=== PATIENT | female | born 1995 | race Caucasian/White ===

== ENCOUNTER → 2018-08-26 | Outpatient (REF) | payer OTHER ==
[2018-08-26 11:39] LABS: PLATELET COUNT, AUTOMATED 373 K/uL (150-450)
== END ==
PROVIDERS: ATTEND Nurse Practitioner Family
DX: R10.9 Unspecified abdominal pain (principal)
CPT/HCPCS: 82040; 82247; 82310; 82374; 82435; 82565; 82947; 84075; 84132; 84155; 84295; 84450; 84460; 84520; 85025

== ENCOUNTER 2018-09-17 12:51 | Emergency (ER) | payer SELFPAY ==
[2018-09-17 12:55] VITALS: BP 154/93
--- NOTE | 2018-09-17 13:01 | ER Report ---
History and Physical Time Seen By MD: 13:01 HPI/ROS CHIEF COMPLAINT: Shortness of breath HISTORY OF PRESENT ILLNESS: This is a 23-year-old female who presents to the emergency department for shortness breath. Patient states that around 10 AM today while she was at work, she began to experience some shortness of breath, started breathing very rapidly, she became very anxious, became lightheaded, she never passed out, EMS was contacted, they checked her answers going center to the ER for further evaluation. Patient arrives very anxious, states that she was concerned that something else was going on and wanted to have an evaluation. She denies fevers or chills. No nausea or vomiting. No chest pain. She states she does have a history of bipolar and anxiety, she states she's had anxiety attacks in the past however she does not recall when this intense. After I been talking with her for about 15 minutes she became less anxious, and is feeling more at ease. She states the shortness of breath is improving, she denies suicidal or homicidal ideations. REVIEW OF SYSTEMS: Constitutional: No fever, no chills. Eyes: No discharge. ENT: No sore throat. Cardiovascular: As above. Respiratory: No cough, no shortness of breath. Gastrointestinal: No abdominal pain, no vomiting. Genitourinary: No hematuria. Musculoskeletal: No back pain. Skin: No rashes. Neurological: No headache. Psychological: As above. Allergies: Coded Allergies: No Known Drug Allergies (Unverified , 09/17/18) Home Meds Active Scripts Lorazepam (ATIVAN) 0.5 Mg Tablet, 1 MG PO Q4-6H, #1 TAB 0 Refills Prov:MAHAMED PADGETT ENVIRONMENTAL GEOLOGIST- 09/17/18 Past Medical/Surgical History Patient has a past medical and surgical history of bipolar, anxiety, depression, previous suicide attempt. Reviewed Nurses Notes: Yes Constitutional Vital Sign - Last 24 Hours 09/17/18 12:55 Temp 98.8 Pulse 96 Resp 24 B/P (MAP) 154/93 Pulse Ox 98 O2 Delivery Room Air Physical Exam General Appearance: The patient is alert, has no immediate need for airway protection and no signs of toxicity. Anxious. Eyes: Pupils equal and round no pallor or injection. ENT, Mouth: Mucous membranes are moist. Respiratory: There are no retractions, lungs are clear to auscultation. Cardiovascular: Regular rate and rhythm. No murmurs, clicks or rubs. Gastrointestinal: Abdomen is soft and non tender, no masses, bowel sounds normal. Neurological: Alert and oriented 4. Moving all extremities. Following all commands. No focal neuro deficits. Skin: Warm and dry, no rashes. Musculoskeletal: Neck is supple non tender. Extremities are nontender, nonswollen and have full range of motion. DIFFERENTIAL DIAGNOSIS: After history and physical exam differential diagnosis w as considered for shortness of breath including but not limited to pulmonary infectious process, anxiety, COPD, asthma, pulmonary embolus and congestive heart failure. Medical Decision Making EKG/Imaging EKG Interpretation 12 lead EKG: Time of EKG 1306. Rhythm: Sinus rhythm, ventricular rate 81 bpm. [place]: normal QRS: normal ST segments: No ST depression or elevation identified. Underlying artifact however no prescription and findings. ED Course/Re-evaluation ED Course The patient was admitted to room. A history of physical were obtained. Differential diagnoses were considered. Initially EKG is obtained showing sinus rhythm, ventricular rate 81 bpm, there is underlying artifact however no ST elevation or depression or underlying dysrhythmia. I discussed with the patient at length about proceeding with laboratory studies, chest x-ray including a d- dimer looking for clots, after this discussion the patient became more relaxed, and ultimately decided to forego any additional studies at this time. She states that she has been any manic phase recently, this feels similar however the anxiety or panic attack today is more severe than when she's had in the past at least what she can recall. I did recommend establishing with him following up with a primary care provider within the next 1-2 weeks. I also told her to have a low threshold for returning to the ER should she develop increased shortness of breath, chest pain or any other concerns and that we would likely check the laboratory studies, chest x-ray at that time. She was agreeable with this plan of care, more relaxed at the time of discharge. The patient was given one, 1 mg tablet prescription for Ativan. Decision to Disposition Date: Sep 17, 2018 Decision to Disposition Time: 13:29 Depart Departure Latest Vital Signs Vital Signs Date Time Temp Pulse Resp B/P (MAP) Pulse Ox O2 Delivery O2 Flow Rate FiO2 09/17/18 12:55 98.8 96 24 154/93 98 Room Air Impression: Primary Impression: Shortness of breath Additional Impression: Panic attack Condition: Improved Disposition: HOME OR SELF-CARE Referrals: MAMTA JACKSON DNP, ENVIRONMENTAL GEOLOGIST-GIO New Scripts Lorazepam (ATIVAN) 0.5 Mg Tablet 1 MG PO Q4-6H, #1 TAB 0 Refills Prov: MAHAMED PADGETT 09/17/18 Departure Forms: ER Transition Record, Medications Reconciliation, Off Work/School Form, School or Work Release?: Work Number of days to be released: 1 Patient Portal Information Patient Instructions: Dyspnea (ED), Panic Attack (ED) Additional Instructions: As we discussed today, your likelihood of cardiac complications or blood clots are very low however there is always a risk, if you decide to return to the emergency department we will likely proceed with laboratory studies as well as chest x-ray. Please follow up and establish with a primary care provider within the next 1-2 weeks. Please take today off, return to work tomorrow and please try to minimize the surrounding stress. Be sure to drink plenty of water. Get plenty of rest. Return to the emergency department for any other concerns or worsening symptoms. Problem Qualifiers MAHAMED PADGETT Sep 17, 2018 13:01
[2018-09-17] MEDS ORDERED: LORA-1455 PO (13:37)
--- NOTE | 2018-09-18 08:14 | EKG ---
FACILITY: [facility] PATIENT NAME: MARY CHRISTIANSON : [id number] MR: [id number] V: [id number] EXAM DATE: ORDERING PHYSICIAN: WILIAM HILL TECHNOLOGIST: SUSAN BRADLEY Test Reason : CP Blood Pressure : / mmHG Vent. Rate : 081 BPM Atrial Rate : 081 BPM P-R Int : 096 ms QRS Dur : 102 ms QT Int : 412 ms P-R-T Axes : -17 035 063 degrees QTc Int : 478 ms Sinus rhythm with marked sinus arrhythmia with short MA Otherwise normal ECG No previous ECGs available Confirmed by Alex Melo ([id number]) on 09/18/2018 2:57:32 PM Referred By: SERGIO Confirmed By:Alex Evans
== END 2018-09-17 13:36 | disposition home or self-care (01) ==
LOC: ER 13:06
DX: R06.02 Shortness of breath (principal); F41.0 Panic disorder [episodic paroxysmal anxiety]
CPT/HCPCS: 93005; 99283

== ENCOUNTER 2018-10-10 18:16 | Inpatient (IN) | payer SELFPAY ==
[~2018-10-10] VITALS: Ht 167.6 cm; Wt 110.7 kg
[~2018-10-10 18:16] MED LIST changes: -HYDR50CA47 PO; -MULT-859 PO; -NIC10R INH; -QUET50TA21 PO
[2018-10-10] MEDS ORDERED: MAG HYD/AL HYD/SIMETH 30ML UDC PO PRN (19:20)
[2018-10-10] MEDS ORDERED: ACETAMINOPHEN 325 MG TAB PO PRN (19:20)
[2018-10-10] MEDS ORDERED: NICOTINE CARTRIDGE 1 EA PO PRN (19:25)
[2018-10-10] MEDS: LORazepam 1 MG TAB PO SCH ×2 (20:43→21:55)
[2018-10-10] MEDS: NICOTINE INH SYSTEM 10 MG/INH INH PRN (20:44)
[2018-10-10 20:51] VITALS: BP 143/96
[2018-10-11 05:41] VITALS: BP 151/63
[2018-10-11] MEDS: NICOTINE INH SYSTEM 10 MG/INH INH PRN (08:30)
[2018-10-11] MEDS: MULTIVITAMINS PO SCH (08:30)
[2018-10-11 13:56] VITALS: BP 132/92
[2018-10-11] MEDS ORDERED: hydrOXYzine PAMOATE 25 MG CAP PO PRN ×2 (14:00→16:25)
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
[2018-10-11] MEDS ORDERED: QUEtiapine FUM 25 MG TAB PO SCH (21:00)
[2018-10-11] MEDS: LORazepam 1 MG TAB PO SCH (21:04)
[2018-10-12 06:43] VITALS: BP 117/81
[2018-10-12] MEDS: MULTIVITAMINS PO SCH (08:45)
[2018-10-12 09:30] VITALS: BP 132/78
--- NOTE | 2018-10-12 09:41 | BHS Progress Note ---
BHS - Subjective Progress Notes Subjective I'm doing better. My last thoughts of hurting myself were yesterday but I didn't have a plan." Denies urge for self harm, denies thoughts of ending life, "There's times I just don't to live." Depression rated 2-3/10, anxiety 7/10 Denies auditory/visual hallucinations, denies anger or mood swings Slept well w/Quetiapine 50mg po @ hs, Hydroxyzine helped anxiety Has appt. with [facility] @ 1300 10/13/18 Suicidal Ideation: None Homicidal Ideation: None BHS - Objective Physical Exam Vital Signs Laboratory Tests Test 10/10/18 14:23 10/10/18 16:36 Range/Units Urine Color Yellow Urine Clarity Cloudy Urine pH 6.0 4.8-9.5 pH Urine Specific Arjay 1.023 Urine Protein Negative NEGATIVE mg/dL Urine Glucose (UA) Negative NEGATIVE mg/dL Urine Ketones Negative NEGATIVE mg/dL Urine Blood Small NEGATIVE Urine Nitrite Negative NEGATIVE Urine Bilirubin Negative NEGATIVE Urine Urobilinogen Negative 0.2-1.9 mg/dL Urine Leukocyte Esterase Small NEGATIVE Urine RBC 3 0-2/HPF /HPF Urine WBC 9 0-5/HPF /HPF Urine Squamous Epithelial Cells Many </=FEW /LPF Urine Bacteria Few NONE-FEW /HPF Urine Hyaline Casts Few NONE-FEW /LPF Urine Mucus Few NONE-FEW /HPF Urine HCG, Qualitative Negative NEGATIVE Urine Opiates Screen Negative Urine Barbiturates Screen Negative Ur Tricyclic Antidepressants Screen Negative Urine Phencyclidine Screen Negative Urine Amphetamines Screen Negative Urine Benzodiazepines Screen Negative Urine Cocaine Screen Negative Urine Cannabinoids Screen Negative White Blood Count 10.3 4.5-11.0 k/uL Red Blood Count 5.40 4.17-5.56 M/uL Hemoglobin 15.5 12.0-16.0 g/dL Hematocrit 44.2 34.0-47.0 % Mean Corpuscular Volume 81.7 80.0-96.0 fL Mean Corpuscular Hemoglobin 28.7 26.0-33.0 pg Mean Corpuscular Hemoglobin Concent 35.1 32.0-36.0 g/dL Red Cell Distribution Width 13.0 11.5-14.5 % Platelet Count 376 150-450 K/uL Mean Platelet Volume 7.9 7.2-11.1 fL Neutrophils (%) (Auto) 62.6 39.4-72.5 % Lymphocytes (%) (Auto) 29.3 17.6-49.6 % Monocytes (%) (Auto) 6.2 4.1-12.4 % Eosinophils (%) (Auto) 1.4 0.4-6.7 % Basophils (%) (Auto) 0.5 0.3-1.4 % Nucleated RBC Relative Count (auto) 0.2 /100WBC Neutrophils # (Auto) 6.5 2.0-7.4 K/uL Lymphocytes # (Auto) 3.0 1.3-3.6 K/uL Monocytes # (Auto) 0.6 0.3-1.0 K/uL Eosinophils # (Auto) 0.1 0.0-0.5 K/uL Basophils # (Auto) 0.1 0.0-0.1 K/uL Nucleated RBC Absolute Count (auto) 0.02 K/uL Sodium Level 142 137-145 mmol/L Potassium Level 3.9 3.5-5.0 mmol/L Chloride Level 105 98-107 mmol/L Carbon Dioxide Level 23 22-31 mmol/L Blood Urea Nitrogen 10 7-18 mg/dl Creatinine 0.80 0.52-1.04 mg/dl Glomerular Filtration Rate Calc > 60.0 Random Glucose 105 75-110 mg/dl Calcium Level 9.9 8.4-10.2 mg/dl Magnesium Level 1.8 1.7-2.2 mg/dl Total Bilirubin 0.6 0.2-1.3 mg/dl Aspartate Amino Transf (AST/SGOT) 23 0-35 U/L Alanine Aminotransferase (ALT/SGPT) 41 0-56 U/L Alkaline Phosphatase 68 0-126 U/L Total Protein 7.8 6.3-8.2 g/dl Albumin 4.8 3.5-5.0 g/dl Salicylates Level < 10 mg/L Salicylate Last Dose Date unk Acetaminophen Level < 10 ug/ml Serum Alcohol < 10 mg/dl Microbiology Date/Time Source Procedure Growth Status 10/10/18 14:23 Clean Catch Midstream Ur Urine Culture - Preliminary Resulted Medications (Trade) Dose Ordered Sig/Carol Route PRN Reason Start Time Stop Time Status Last Admin Dose Admin Hydroxyzine Pamoate (Vistaril(*) 25 Mg Cap (Or Equiv)) Give 50 mg now Q6H PRN PO ANXIETY 10/11/18 16:25 11/10/18 16:24 10/11/18 17:22 Lorazepam (Ativan(*) 1 Mg Tab (Or Equiv)) 1 mg QHS PO 10/10/18 21:00 10/24/18 20:59 10/11/18 21:04 Multivitamins (Thera-M Enhanced Tab (Or Equiv)) 1 each QDAY PO 10/11/18 09:00 11/10/18 08:59 10/12/18 08:45 Nicotine (Nicotrol Inhaler 10 Mg/Inh (Or Equiv)) 10 mg Q2H PRN INH NICOTINE REPLACEMENT 10/10/18 19:25 11/09/18 19:24 10/11/18 08:30 Quetiapine Fumarate (SEROquel 25 MG TAB (OR EQUIV)) 50 mg QHS PO 10/11/18 21:00 11/10/18 20:59 10/11/18 21:04 Muscle Strength and Tone: WNL Gait and Station: Steady S Medications Reviewed: Side Effects, Benefits of Medication, Risks Allergies Reviewed: Yes Mental Status Exam General Appearance: Casual, Well Groomed, Good Eye Contact, Cooperative, Polite, Good Interaction Speech: Clear, Spontaneous, Normal Rate, Normal Rhythm, Normal Volume, Normal Tone Mood: Dysthmic/Depressed (rating 3/10) Affect: Full and Appropriate; No Calm, No Sad, No Neutral, No Flat; Anxious Thought Process: Organized, Logical, Goal Directed; No Loose Associations, No Flight of Ideas Thought Content: No Suicidal Ideation, No Homicidal Ideation Sensorium: Clear Cognition: Alert & Oriented-Person, Alert & Oriented-Place, Alert & Oriented- Time, Vlorr-[id number]-[id number] Memory: Immediate, Recent, Remote Intelligence: Average Insight Judgment: Good [facility] Assessment and Plan [id number] Encounter Date: Oct 12, 2018 [id number] Encounter Time: 09:36 [facility] Plan: Admit to Unit, Necessary Precautions, Individual/Group Therapy, Admin/Titrate Meds, Educate Patient Multpiple Antipsychotics Used: No Problems: (1) Bipolar 1 disorder, depressed Status: Chronic (2) Borderline personality disorder Status: Chronic Condition Discharge to home Discharge meds per med reconciliation Abstain from etoh/illicit substances Follow up w/[facility], appt. 10/13/18 @ 1300 Crisis line provided, encourage return to ER for SI/HI LIGIA MCWILLIAMS NP Oct 12, 2018 09:41
[2018-10-12] MEDS ORDERED: MULT-859 PO (10:00)
[2018-10-12] MEDS ORDERED: QUET50TA21 PO (10:00)
[2018-10-12] MEDS ORDERED: NIC10R INH (10:00)
[2018-10-12] MEDS ORDERED: HYDR50CA47 PO (10:01)
--- NOTE | 2018-10-13 12:20 | ROMSA DISCHARGE ---
DATE OF ADMISSION: October 10, 2018 DATE OF DISCHARGE: October 12, 2018 ATTENDING PROVIDER Elda Malone, Psychiatric Mental Health Nurse Practitioner FINAL DIAGNOSES (PER DSM-5) 1. Bipolar 1 disorder, current episode depressed. 2. Borderline personality disorder. 3. Cannabis use disorder. 4. Mild attention deficit hyperactivity disorder per history. REASON FOR ADMISSION/BRIEF HISTORY This patient is a 23-year-old single female that presented to the emergency room on a voluntary basis complaining of suicidal ideation. She reported that she had recently moved to [place] three months ago. She did quit taking her medication for bipolar disorder, which was [place] at the time, as she did not have insurance to cover expense. Patient states that she moved to [place], [place] with her fiance and that her father lives here. She states that over the last week she noticed she had constant thoughts of not wanting to live. She had no plans to commit suicide or end her life. She denied any other complaints. She was transferred to the Behavioral Health Unit for further evaluation and treatment on a voluntary basis. At time of discharge interview, patient is reporting her depression level as a 2-3/10. Her anxiety is 7/10. She is denying anger or mood swings. She was started on quetiapine 50 mg at bedtime. She reports that her sleep while she has been on the Behavioral Health Unit has been sufficient. At home, prior to admission, she was only sleeping three hours for the last week. She was also given hydroxyzine pamoate, which has been helpful for her anxiety. She has a followup with [facility] at 1 o'clock tomorrow, Saturday, October 13, 2018, with intent to followup with an individual therapist and a medication provider on the outside. She is denying thoughts of hurting herself or others and is agreeable with ongoing outpatient care. PHYSICAL EXAMINATION Please see emergency room note. Vital signs at the time of admission: Temperature 97.3, pulse 72, blood pressure 143/96, pulse oximetry 96% on room air. Vital signs at the time of discharge: Temperature 98, pulse 91, respiratory rate 16, blood pressure 132/78, pulse oximetry 97% on room air. LABORATORY DATA CBC within normal limits. Chemistry panel within normal limits. Pending thyroid stimulating hormone. Urine screen with small amount of leukocyte esterase. Many squamous epithelial cells. Toxicology includes salicylate, acetaminophen, serum alcohol levels less than 10. Urine screen negative for opiates, barbiturates, tricyclics, phencyclidine, amphetamines, benzodiazepines, cocaine and cannabinoids. RESULTS OF TESTING IMAGING None. CONSULTATIONS None. TREATMENT Patient participated in individual and group therapy. Patient was started on quetiapine 50 mg p.o. at h.s. for mood and her sleep, which she reports benefits with use. She was also started on hydroxyzine 50 mg p.o. every six hours for anxiety with reported benefit. HOSPITAL COURSE Patient remained calm and cooperative throughout her stay. She talked of engaging with [facility], which she had presented to prior to coming to the emergency room, for ongoing mental health care on an outpatient basis. CONDITION OF PATIENT ON DISCHARGE She is stable. She is considered a minimal risk to herself or others. DISPOSITION Patient is discharged to home. DISCHARGE MEDICATIONS 1. Hydroxyzine pamoate 50 mg one p.o. b.i.d. or twice daily for anxiety. 2. One multivitamin p.o. daily. 3. Nicotine cartridge inhaler as needed for nicotine replacement. 4. Quetiapine 50 mg one p.o. at h.s. Patient is encouraged to take medications only as prescribed. She is encouraged to followup with outpatient medication management provider and individual therapist s scheduled. She has an appointment with [facility] tomorrow at 1 o'clock, October 13, 2018, for followup individual therapy. She is to abstain from alcohol and all illicit substances. She is given the Crisis Line number and encouraged use for worsening symptoms. Patient is encouraged to return to the emergency room for suicidal or homicidal ideation. She is competent and agreeable with the above discharge plan. [place]
== END 2018-10-12 10:49 | disposition home or self-care (01) | DRG 885 ==
LOC: BHS 18:16
PROVIDERS: ADMIT Nurse Practitioner Psychiatric/Mental Health; ATTEND Nurse Practitioner Psychiatric/Mental Health
DX: F31.9 Bipolar disorder, unspecified (principal); R45.851 Suicidal ideations; F60.3 Borderline personality disorder; F90.1 Attention-deficit hyperactivity disorder, predominantly hyperactive type; Z91.5 Personal history of self-harm; Z62.810 Personal history of physical and sexual abuse in childhood; Z81.1 Family history of alcohol abuse and dependence; Z81.8 Family history of other mental and behavioral disorders
CPT/HCPCS: Q0177

== ENCOUNTER → 2018-10-10 | Emergency (ER) | payer SELFPAY ==
[~2018-10-10] MED LIST: HYDR50CA47 PO; LORA-1455 PO; MULT-859 PO; NIC10R INH; QUET50TA21 PO
[2018-10-10 16:05] VITALS: BP 151/111
--- NOTE | 2018-10-10 16:13 | ER Report ---
History and Physical Time Seen By MD: 16:10 HPI/ROS CHIEF COMPLAINT: Suicidal ideation HISTORY OF PRESENT ILLNESS: 23-year-old female patient presents to emergency room with complaint of suicidal ideation. Patient states that she recently moved to [place] 3 months ago. She states that she quit taking her medication for her bipolar depression at that time. There is an she gives that she did not have insurance that time. Patient states that she moved out here with her fianc as well as her father. She states that over the last week she has noticed that she has had constant thoughts of not wanting to be here. She states that she has no plans to commit suicide. She denies any fevers, chills, nausea, vomiting or diarrhea. REVIEW OF SYSTEMS: Respiratory: No cough, no dyspnea. Cardiovascular: No chest pain, no palpitations. Gastrointestinal: No vomiting, no abdominal pain. Musculoskeletal: No back pain. Allergies: Coded Allergies: No Known Drug Allergies (Unverified , 10/10/18) Home Meds Active Scripts Lorazepam (ATIVAN) 0.5 Mg Tablet, 1 MG PO Q4-6H, #1 TAB 0 Refills Prov:MAHAMED PADGETT Princess [employer] SP[employer]- 09/17/18 Past Medical/Surgical History Patient has a past medical history of bipolar depression, anxiety, suicide attempt 2. Patient denies any pertinent surgical history. Reviewed Nurses Notes: Yes Constitutional Vital Sign - Last 24 Hours 10/10/18 16:05 Temp 98.5 Pulse 106 Resp 16 B/P (MAP) 151/111 Pulse Ox 95 O2 Delivery Room Air Physical Exam General Appearance: The patient is alert, has no immediate need for airway protection and no current signs of toxicity. Respiratory: Chest is non tender, lungs are clear to auscultation. Cardiac: regular rate and rhythm Gastrointestinal: Abdomen is soft and non tender, no masses, bowel sounds normal. Musculoskeletal: Neck: Neck is supple and non tender. Extremities have full range of motion and are non tender. Skin: No rashes or lesions. Psych: Patient is able to maintain eye contact during interview, rate of speech is appropriate. DIFFERENTIAL DIAGNOSIS: After history and physical exam differential diagnosis was considered for depression, bipolar, suicidal ideation. Medical Decision Making Data Points Result Diagram: 10/10/18 1636 10/10/18 1636 Laboratory Hematology Test 10/10/18 14:23 10/10/18 16:36 Urine Color Yellow Urine Clarity Cloudy Urine pH 6.0 pH (4.8-9.5) Urine Specific [place] 1.023 Urine Protein Negative mg/dL (NEGATIVE) Urine Glucose (UA) Negative mg/dL (NEGATIVE) Urine Ketones Negative mg/dL (NEGATIVE) Urine Blood Small (NEGATIVE) Urine Nitrite Negative (NEGATIVE) Urine Bilirubin Negative (NEGATIVE) Urine Urobilinogen Negative mg/dL (0.2-1.9) Urine Leukocyte Esterase Small (NEGATIVE) Urine RBC 3 /HPF (0-2/HPF) Urine WBC 9 /HPF (0-5/HPF) Urine Squamous Epithelial Cells Many /LPF (</=FEW) Urine Bacteria Few /HPF (NONE-FEW) Urine Hyaline Casts Few /LPF (NONE-FEW) Urine Mucus Few /HPF (NONE-FEW) Urine HCG, Qualitative Negative (NEGATIVE) Urine Opiates Screen Negative Urine Barbiturates Screen Negative Ur Tricyclic Antidepressants Screen Negative Urine Phencyclidine Screen Negative Urine Amphetamines Screen Negative Urine Benzodiazepines Screen Negative Urine Cocaine Screen Negative Urine Cannabinoids Screen Negative Red Blood Count 5.40 M/uL (4.17-5.56) Mean Corpuscular Volume 81.7 fL (80.0-96.0) Mean Corpuscular Hemoglobin 28.7 pg (26.0-33.0) Mean Corpuscular Hemoglobin Concent 35.1 g/dL (32.0-36.0) Red Cell Distribution Width 13.0 % (11.5-14.5) Mean Platelet Volume 7.9 fL (7.2-11.1) Neutrophils (%) (Auto) 62.6 % (39.4-72.5) Lymphocytes (%) (Auto) 29.3 % (17.6-49.6) Monocytes (%) (Auto) 6.2 % (4.1-12.4) Eosinophils (%) (Auto) 1.4 % (0.4-6.7) Basophils (%) (Auto) 0.5 % (0.3-1.4) Nucleated RBC Relative Count (auto) 0.2 /100WBC Neutrophils # (Auto) 6.5 K/uL (2.0-7.4) Lymphocytes # (Auto) 3.0 K/uL (1.3-3.6) Monocytes # (Auto) 0.6 K/uL (0.3-1.0) Eosinophils # (Auto) 0.1 K/uL (0.0-0.5) Basophils # (Auto) 0.1 K/uL (0.0-0.1) Nucleated RBC Absolute Count (auto) 0.02 K/uL Sodium Level 142 mmol/L (137-145) Potassium Level 3.9 mmol/L (3.5-5.0) Chloride Level 105 mmol/L (98-107) Carbon Dioxide Level 23 mmol/L (22-31) Blood Urea Nitrogen 10 mg/dl (7-18) Creatinine 0.80 mg/dl (0.52-1.04) Glomerular Filtration Rate Calc > 60.0 Random Glucose 105 mg/dl (75-110) Calcium Level 9.9 mg/dl (8.4-10.2) Magnesium Level 1.8 mg/dl (1.7-2.2) Total Bilirubin 0.6 mg/dl (0.2-1.3) Aspartate Amino Transf (AST/SGOT) 23 U/L (0-35) Alanine Aminotransferase (ALT/SGPT) 41 U/L (0-56) Alkaline Phosphatase 68 U/L (0-126) Total Protein 7.8 g/dl (6.3-8.2) Albumin 4.8 g/dl (3.5-5.0) Salicylates Level < 10 mg/L Salicylate Last Dose Date unk Acetaminophen Level < 10 ug/ml Serum Alcohol < 10 mg/dl Chemistry Test 10/10/18 14:23 10/10/18 16:36 Urine Color Yellow Urine Clarity Cloudy Urine pH 6.0 pH (4.8-9.5) Urine Specific [place] 1.023 Urine Protein Negative mg/dL (NEGATIVE) Urine Glucose (UA) Negative mg/dL (NEGATIVE) Urine Ketones Negative mg/dL (NEGATIVE) Urine Blood Small (NEGATIVE) Urine Nitrite Negative (NEGATIVE) Urine Bilirubin Negative (NEGATIVE) Urine Urobilinogen Negative mg/dL (0.2-1.9) Urine Leukocyte Esterase Small (NEGATIVE) Urine RBC 3 /HPF (0-2/HPF) Urine WBC 9 /HPF (0-5/HPF) Urine Squamous Epithelial Cells Many /LPF (</=FEW) Urine Bacteria Few /HPF (NONE-FEW) Urine Hyaline Casts Few /LPF (NONE-FEW) Urine Mucus Few /HPF (NONE-FEW) Urine HCG, Qualitative Negative (NEGATIVE) Urine Opiates Screen Negative Urine Barbiturates Screen Negative Ur Tricyclic Antidepressants Screen Negative Urine Phencyclidine Screen Negative Urine Amphetamines Screen Negative Urine Benzodiazepines Screen Negative Urine Cocaine Screen Negative Urine Cannabinoids Screen Negative White Blood Count 10.3 k/uL (4.5-11.0) Red Blood Count 5.40 M/uL (4.17-5.56) Hemoglobin 15.5 g/dL (12.0-16.0) Hematocrit 44.2 % (34.0-47.0) Mean Corpuscular Volume 81.7 fL (80.0-96.0) Mean Corpuscular Hemoglobin 28.7 pg (26.0-33.0) Mean Corpuscular Hemoglobin Concent 35.1 g/dL (32.0-36.0) Red Cell Distribution Width 13.0 % (11.5-14.5) Platelet Count 376 K/uL (150-450) Mean Platelet Volume 7.9 fL (7.2-11.1) Neutrophils (%) (Auto) 62.6 % (39.4-72.5) Lymphocytes (%) (Auto) 29.3 % (17.6-49.6) Monocytes (%) (Auto) 6.2 % (4.1-12.4) Eosinophils (%) (Auto) 1.4 % (0.4-6.7) Basophils (%) (Auto) 0.5 % (0.3-1.4) Nucleated RBC Relative Count (auto) 0.2 /100WBC Neutrophils # (Auto) 6.5 K/uL (2.0-7.4) Lymphocytes # (Auto) 3.0 K/uL (1.3-3.6) Monocytes # (Auto) 0.6 K/uL (0.3-1.0) Eosinophils # (Auto) 0.1 K/uL (0.0-0.5) Basophils # (Auto) 0.1 K/uL (0.0-0.1) Nucleated RBC Absolute Count (auto) 0.02 K/uL Glomerular Filtration Rate Calc > 60.0 Calcium Level 9.9 mg/dl (8.4-10.2) Magnesium Level 1.8 mg/dl (1.7-2.2) Total Bilirubin 0.6 mg/dl (0.2-1.3) Aspartate Amino Transf (AST/SGOT) 23 U/L (0-35) Alanine Aminotransferase (ALT/SGPT) 41 U/L (0-56) Alkaline Phosphatase 68 U/L (0-126) Total Protein 7.8 g/dl (6.3-8.2) Albumin 4.8 g/dl (3.5-5.0) Salicylates Level < 10 mg/L Salicylate Last Dose Date unk Acetaminophen Level < 10 ug/ml Serum Alcohol < 10 mg/dl Toxicology Test 10/10/18 14:23 10/10/18 16:36 Urine Opiates Screen Negative Urine Barbiturates Screen Negative Ur Tricyclic Antidepressants Screen Negative Urine Phencyclidine Screen Negative Urine Amphetamines Screen Negative Urine Benzodiazepines Screen Negative Urine Cocaine Screen Negative Urine Cannabinoids Screen Negative Salicylates Level < 10 mg/L Salicylate Last Dose Date unk Acetaminophen Level < 10 ug/ml Serum Alcohol < 10 mg/dl Urinalysis Test 10/10/18 14:23 Urine Color Yellow Urine Clarity Cloudy Urine pH 6.0 pH (4.8-9.5) Urine Specific [place] 1.023 Urine Protein Negative mg/dL (NEGATIVE) Urine Glucose (UA) Negative mg/dL (NEGATIVE) Urine Ketones Negative mg/dL (NEGATIVE) Urine Blood Small (NEGATIVE) Urine Nitrite Negative (NEGATIVE) Urine Bilirubin Negative (NEGATIVE) Urine Urobilinogen Negative mg/dL (0.2-1.9) Urine Leukocyte Esterase Small (NEGATIVE) Urine RBC 3 /HPF (0-2/HPF) Urine WBC 9 /HPF (0-5/HPF) Urine Squamous Epithelial Cells Many /LPF (</=FEW) Urine Bacteria Few /HPF (NONE-FEW) Urine Hyaline Casts Few /LPF (NONE-FEW) Urine Mucus Few /HPF (NONE-FEW) Urine HCG, Qualitative Negative (NEGATIVE) ED Course/Re-evaluation ED Course Patient was admitted on exam room, history and physical were obtained. Differential diagnoses were considered. On examination lungs are clear, heart is regular, abdomen is soft and nontender. Lab work for a behavioral health admission were done. Lab results were unremarkable. I discussed the findings with the patient. After we got labs back and make sure that she did want to be admitted. She said that she did which I was in agreement with. I spoke with Elda Malone, nurse practitioner. She did agree to accept the patient for admission. I discussed the patient who verbalized understanding and agreement with plan. The tach from [facility] come down and she signed in voluntarily. Decision to Disposition Date: Oct 10, 2018 Decision to Disposition Time: 17:14 Depart Departure Latest Vital Signs Vital Signs Date Time Temp Pulse Resp B/P (MAP) Pulse Ox O2 Delivery O2 Flow Rate FiO2 10/10/18 16:05 98.5 106 16 151/111 95 Room Air Impression: Primary Impression: Depression Additional Impression: Suicidal ideation Condition: Condition Unchanged Disposition: XFER TO [facility] Problem Qualifiers Primary Impression: Depression Depression Type: major depressive disorder Major depression recurrence: recurrent Active/Remission status: currently active Major depression episode severity: moderate Qualified Codes: F33.1 - Major depressive disorder, recurrent, moderate VINAY ESPINOZA Oct 10, 2018 16:13
[2018-10-10 16:47] LABS: PLATELET COUNT, AUTOMATED 376 K/uL (150-450)
== END ==
LOC: ER 16:09 → BHS 18:16 → UNDOADMIN 18:16
DX: F33.1 Major depressive disorder, recurrent, moderate (principal); R45.851 Suicidal ideations; F41.9 Anxiety disorder, unspecified; Z79.899 Other long term (current) drug therapy
CPT/HCPCS: 80305; 80320; 80329; 81001; 81025; 82040; 82247; 82310; 82374; 82435; 82565; 82947; 83735; 84075; 84132; 84155; 84295; 84443; 84450; 84460; 84520; 85025; 87088; 99284